=== PATIENT | female | born 1990 | race Two or more races ===

== ENCOUNTER 2024-04-01 19:54 | Emergency (ER) | payer MEDICAID, OTHER ==
[~2024-04-01] VITALS: Ht 180.3 cm; Wt 103.5 kg
[2024-04-01 23:57] VITALS: BP 130/69; PULSE 76; RESP 16; TEMP 98.3
[2024-04-02] MEDS ORDERED: IBUP-1455 PO (01:45)
[2024-04-02] MEDS ORDERED: CYCL-611 PO (01:45)
[2024-04-02 02:09] VITALS: O2SAT 98
== END 2024-04-02 02:15 | disposition home or self-care (01) ==
LOC: ER 19:54
DX: S13.9XXA Sprain of joints and ligaments of unspecified parts of neck, initial encounter (principal); S23.3XXA Sprain of ligaments of thoracic spine, initial encounter; S76.012A Strain of muscle, fascia and tendon of left hip, initial encounter; S00.03XA Contusion of scalp, initial encounter; Z88.0 Allergy status to penicillin; Z88.1 Allergy status to other antibiotic agents; V43.52XA Car driver injured in collision with other type car in traffic accident, initial encounter; Y93.89 Activity, other specified; Y92.488 Other paved roadways as the place of occurrence of the external cause; Y99.8 Other external cause status
CPT/HCPCS: 70450; 72125